=== PATIENT | male | born 1975 | race Caucasian/White ===

== ENCOUNTER 2021-12-14 12:47 | Emergency (ER) | payer BC ==
[~2021-12-14] VITALS: Ht 185.4 cm; Wt 88.5 kg
[2021-12-14] MEDS ORDERED: ATORVASTATIN CA40 MG PO (12:54)
[2021-12-14] MEDS ORDERED: PAROXETINE HCL10 MG PO (12:55)
== END 2021-12-14 18:31 | disposition home or self-care (01) ==
LOC: ER 12:47
DX: S93.401A Sprain of unspecified ligament of right ankle, initial encounter (principal); X58.XXXA Exposure to other specified factors, initial encounter; Y92.019 Unspecified place in single-family (private) house as the place of occurrence of the external cause